=== PATIENT | male | born 1980 | race Caucasian/White ===

== ENCOUNTER 2017-05-18 10:05 | Emergency (ER) | payer MEDICAID ==
[2017-05-18] MEDS ORDERED: LORazepam 1 MG TAB PO ONE (10:49)
--- NOTE | 2017-05-18 10:49 | EDPHY ---
H & P Stated Complaint: m1 SI from [facility] Source: Patient, EMS - Medical/Surgical History Hx Asthma: Yes Hx Chronic Respiratory Disease: No Hx Diabetes: No Hx Cardiac Disease: No Hx Renal Disease: No Hx Cirrhosis: No Hx Alcoholism: Yes Hx HIV/AIDS: No Hx Splenectomy or Spleen Trauma: No Other PMH: asthma, depression, spinal fusion Time Seen by Provider: 05/18/17 10:31 HPI/ROS: CHIEF COMPLAINT: Suicidal ideation, depression HISTORY OF PRESENT ILLNESS: This is a 36-year-old male presenting to the emergency department via EMS. Patient was sent over from [facility] with reports of increased agitation suicidal ideation. Patient here in the ED states" I am just really really depressed, I feel like I am crawling out of my skin never felt this bad before [place] of feel like this. I feel like just jumping into the glass window because Im some crawling out of my skin" patient states he went to [facility] voluntarily because he was so depressed, he reports increased stress with his and environmental stressors. Denies any chest pain shortness of breath REVIEW OF SYSTEMS: Constitutional: No fever, no chills. Eyes: No discharge. ENT: No sore throat. Cardiovascular: No chest pain, no palpitations. Respiratory: No cough, no shortness of breath. Gastrointestinal: No abdominal pain, no vomiting. Genitourinary: No hematuria. Musculoskeletal: No back pain. Skin: No rashes. Neurological: No headache. Psychiatric: Feel depressed (Rivka Romano) - Physical Exam Exam: General Appearance: Alert, agitated, tearful Eyes: Pupils equal and round no pallor or injection. ENT, Mouth: Mucous membranes moist. Respiratory: There are no retractions, lungs are clear to auscultation. Cardiovascular: Regular rate and rhythm. Gastrointestinal: Abdomen is soft and nontender, no masses, bowel sounds normal. Neurological: No focal deficits ambulatory without gait disturbance Skin: Warm and dry, no rashes. Musculoskeletal: Neck is supple nontender. Extremities: symmetrical, full range of motion. Psychiatric: Patient is oriented X 3, agitated (Rivka Romano) Constitutional: Initial Vital Signs Temperature (C) 36.7 C 05/18/17 10:24 Heart Rate 90 05/18/17 10:24 Respiratory Rate 18 05/18/17 10:24 Blood Pressure 135/94 H 05/18/17 10:24 O2 Sat (%) 95 05/18/17 10:24 O2 Delivery Mode Room Air Allergies/Adverse Reactions: No Known Allergies Allergy (Unverified 05/19/17 08:21) Home Medications: Medication Instructions Recorded Mirtazapine [Remeron] 05/19/17 Medical Decision Making ED Course/Re-evaluation: Discussed ED plan of care: CBC, BMP, UA drug screen psych evaluation 1330: The patient re-evaluation, calm no agitation at this moment. Patient medically cleared for psych evaluation 1630: Patient calm, no agitation denies any suicidal ideation homicidal ideation, awaiting EPS evaluation 1710: Patient had up to Dr. Villa, no apparent distress patient stable, awaiting EPS evaluation (Rivka Romano) 1735: Patient has been evaluated by mental health. Patient will be admitted to inpatient psychiatric care. Bed search established at this time. (Marcio Villa) 0700: Assumed patient care at shift change from Dr. Simental. Patient is awaiting placement. Calm and cooperative. 1108: Went to reassess patient and he is currently sleeping. 2pm: pt calm and cooperative. Denies SI/HI. Would like to go back to [facility]. [facility] apparently refused to take pt back. Medicaid declined inpt mental health hospitalization for this pt. EPS contacted again. (Lori Oliva) Patient was not seen by me while he was in the emergency department. However his care was discussed with the nurse practitioner while the patient was in the department. I agree with treatment plan and management (James Haines) Differential Diagnosis: Other differential diagnosis considered but not limited to AMS due to drug abuse , psychosis, and [place] (Rivka Romano) Other Provider: I assumed care of this patient from Dr. Lori Oliva change of shift, 3:00 p.m.. Patient was accepted at [facility] [place]. Transfer paper work was signed by myself. Patient received Ativan for some ongoing, mild agitation, prior to transfer. (Bijal Brown) - Data Points Laboratory Results: Laboratory Results 05/18/17 10:14 05/18/17 10:14 Medications Given: Discontinued Medications Lorazepam (Ativan) 1 mg PO EDNOW ONE Stop: 05/18/17 10:50 Last Admin: 05/18/17 10:57 Dose: 1 mg Lorazepam (Ativan) 1 mg PO EDNOW ONE Stop: 05/19/17 09:24 Last Admin: 05/19/17 09:25 Dose: 1 mg Lorazepam (Ativan) 1 mg PO EDNOW ONE Stop: 05/19/17 17:51 Last Admin: 05/19/17 18:02 Dose: 1 mg Departure - Departure Disposition: Other Psych, Not [place] Clinical Impression: Suicidal ideation, Severe major depression Condition: Good Instructions: Depression (ED), Suicide Prevention for Adults (ED) Referrals: Patient,NotPresent [Unknown] - As per Instructions
[2017-05-18 10:58] LABS: % IMMATURE GRANULYOCYTES 0.7 % (0.0-1.1); ABSOLUTE IMMATURE GRANULOCYTES 0.04 10^3/uL (0.00-0.10); ADD DIFF? NO; ADD MORPH? NO; ADD SCAN? NO; ATYPICAL LYMPHOCYTE FLAG 10 (0-99); FRAGMENT RBC FLAG 10 (0-99); HEMOGLOBIN 15.9 g/dL (13.7-17.5); LEFT SHIFT FLG 0 (0-99); LIPEMIA HEMOLYSIS FLAG 90 (0-99); MEAN CELL HEMOGLOBIN 28.5 pg (27.9-34.1); MEAN CELL HEMOGLOBIN CONCENTR. 33.8 g/dL (32.4-36.7); MEAN CELL VOLUME 84.4 fL (81.5-99.8); PLATELET CLUMPS FLAG 0 (0-99); PLATELET COUNT 460 10^3/uL (150-400); RED BLOOD CELL COUNT 5.57 10^6/uL (4.40-6.38); RED CELL DISTRIBUTION WIDTH 12.8 % (11.5-15.2)
[2017-05-18 11:08] LABS: ANION GAP 10 mEq/L (8-16); CALCIUM 10.3 mg/dL (8.5-10.4); CARBON DIOXIDE 26 mEq/l (22-31); CHLORIDE 106 mEq/L (97-110); CREATININE 1.1 mg/dL (0.7-1.3); ETHANOL SERUM < 10 mg/dL (0-10); GLOMERULAR FILTRATION RATE > 60; GLUCOSE 116 mg/dL (70-100); POTASSIUM 4.4 mEq/L (3.5-5.2); SODIUM 142 mEq/L (134-144)
[2017-05-19] MEDS ORDERED: LORazepam 1 MG TAB PO ONE ×2 (09:23→17:50)
[2017-05-19 18:36] VITALS: PULSE 92; RESP 16; TEMP 97.5
[2017-05-19 19:26] VITALS: BP 111/82; O2SAT 98
== END 2017-05-19 19:27 ==
DX: R45.851 Suicidal ideations (principal); F32.2 Major depressive disorder, single episode, severe without psychotic features; J45.909 Unspecified asthma, uncomplicated
CPT/HCPCS: 80305; G0480

== ENCOUNTER 2017-06-02 13:06 | Emergency (ER) | payer MEDICAID ==
--- NOTE | 2017-06-02 14:20 | EDPHY ---
HPI/HX/ROS/PE/MDM Narrative: CHIEF COMPLAINT: Left sided chest/flank pain, difficulty breathing. HISTORY OF PRESENT ILLNESS: This patient is a 36 year old male with history of asthma complaining of shortness of breath and left-sided pain in his chest, abdomen, and flank onset three days ago. He states he developed abdominal discomfort and shortness of breath, feeling as though something was pressing up from his abdomen on the left side, more pronounced while supine. He states the sensation is different from asthma or neuropathy, and he has not had similar symptoms in the past. Yesterday, he developed associated left-sided chest pain. Today, his discomfort has become noticeably worse, with more pronounced chest, flank, and abdominal pain. He notes increased pain with inspiration and while supine. No fever, chills, constipation, palpitations, vomiting, diarrhea, urinary complaints, headache, lightheadedness. Denies history of recent illness, history of kidney stones, hypertension, hyperlipidemia, or diabetes. No family history of early cardiac disease. Denies constipation. REVIEW OF SYSTEMS: Aside from elements discussed in the HPI, a comprehensive 10-point review of systems was reviewed and is negative. 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 Denies alcohol use, marijuana use, or illicit drug use. VITAL SIGNS: Reviewed by me GENERAL: Well-developed, well-nourished, resting comfortably in no respiratory distress. HEENT: Atraumatic. Eyes: No icterus, no injection. Mouth: moist mucous membranes. No erythema or lesions. Neck: supple with no adenopathy. LUNGS: Somewhat diminished, no wheezes, rhonchi or rales. CARDIAC: Regular rate and rhythm, no rubs, murmurs or gallops. ABDOMEN: Soft, mild left mid quadrant tenderness, no guarding or rebound, nondistended, bowel sounds normal. BACK: Left flank pain. EXTREMITIES: No trauma. No edema. Range of motion is normal throughout. NEURO: Alert and oriented, grossly nonfocal. SKIN: Warm and dry, no rash. PSYCHIATRIC: Normal mentation, no agitation. Portions of this note were transcribed by a medical assistant secretary. I personally performed a history, physical exam, medical decision making, and confirmed accuracy of information the transcribed note. (Bijal Brown) ED Course: Plan for labs including CBC, BMP, UA, lipase, troponin, d-dimer. Plan for chest x-ray, EKG. The 12 lead EKG was interpreted by myself. See hard copy and/or "tracemaster" electronic copy for interpretation. Sinus rhythm, rate 84. Chest x-ray demonstrates no pneumonia. Somewhat elevated left hemidiaphragm. Patient's labs including a troponin are negative. He has no signs of ischemia on EKG, negative troponin, negative D-dimer, no pneumonia on chest x-ray, and normal labs. Urinalysis has no blood. Patient was reexamined at 3:40 p.m.. He has left lateral discomfort to palpation on his abdomen. We discussed the results thus far. Patient wonders if this is a neurologic be pain related to his anterior approach spinal fusion. Plan at this point is to obtain a CT scan. CT scan shows no acute intra- abdominal pathology, patient will be discharged home with symptomatic care. He did receive an albuterol neb treatment to address his complaints of shortness of breath. (Bijal Brown) MDM: After obtaining the patient's history and performing an examination, differential diagnosis considered included but was not limited to appendicitis, cholecystitis, gastritis, pancreatitis, kidney stones, urinary tract infections and other causes. (Bijal Brown) This patient was signed out to me at change of shift. The CT is unremarkable for any acute changes according to Farhad Ramachandran. I will discharge the patient at this time. (Claudio Chou) - Data Points Imaging Results: Imaging Impressions Chest X-Ray 06/02/17 13:14 Impression: No source for chest pain identified. Laboratory Results: Laboratory Results 06/02/17 14:46 06/02/17 14:46 06/02/17 06/02/17 06/02/17 14:46 14:46 14:46 WBC RBC Hgb Hct MCV MCH MCHC RDW Plt Count MPV Neut % (Auto) Lymph % (Auto) [place] % (Auto) Eos % (Auto) Baso % (Auto) Nucleat RBC Rel Count Absolute Neuts (auto) Absolute Lymphs (auto) Absolute Monos (auto) Absolute Eos (auto) Absolute Basos (auto) Absolute Nucleated RBC Immature Gran % Immature Gran # D-Dimer Sodium Potassium Chloride Carbon Dioxide Anion Gap BUN Creatinine Estimated GFR Glucose Calcium Troponin I < 0.012 ng/mL ng/mL (0-0.034) Lipase Urine Color YELLOW Urine Appearance CLEAR Urine pH 7.0 (5.0-7.5) Ur Specific [place] 1.017 (1.002-1.030) Urine Protein NEGATIVE (NEGATIVE) Urine Ketones NEGATIVE (NEGATIVE) Urine Blood NEGATIVE (NEGATIVE) Urine Nitrate NEGATIVE (NEGATIVE) Urine Bilirubin NEGATIVE (NEGATIVE) Urine Urobilinogen NEGATIVE EU EU (0.2-1.0) Ur Leukocyte Esterase NEGATIVE (NEGATIVE) Urine Glucose NEGATIVE (NEGATIVE) [place] 0.8 mEq/L mEq/L (0.6-1.2) 06/02/17 06/02/17 06/02/17 14:46 14:46 14:46 WBC 6.70 10^3/uL 10^3/uL (3.80-9.50) RBC 5.11 10^6/uL 10^6/uL (4.40-6.38) Hgb 14.6 g/dL g/dL (13.7-17.5) Hct 43.4 % % (40.0-51.0) MCV 84.9 fL fL (81.5-99.8) MCH 28.6 pg pg (27.9-34.1) MCHC 33.6 g/dL g/dL (32.4-36.7) RDW 13.1 % % (11.5-15.2) Plt Count 264 10^3/uL 10^3/uL (150-400) MPV 9.8 fL fL (8.7-11.7) Neut % (Auto) 62.0 % % (39.3-74.2) Lymph % (Auto) 24.8 % % (15.0-45.0) [place] % (Auto) 8.8 % % (4.5-13.0) Eos % (Auto) 2.8 % % (0.6-7.6) Baso % (Auto) 0.7 % % (0.3-1.7) Nucleat RBC Rel Count 0.0 % % (0.0-0.2) Absolute Neuts (auto) 4.15 10^3/uL 10^3/uL (1.70-6.50) Absolute Lymphs (auto) 1.66 10^3/uL 10^3/uL (1.00-3.00) Absolute Monos (auto) 0.59 10^3/uL 10^3/uL (0.30-0.80) Absolute Eos (auto) 0.19 10^3/uL 10^3/uL (0.03-0.40) Absolute Basos (auto) 0.05 10^3/uL 10^3/uL (0.02-0.10) Absolute Nucleated RBC 0.00 10^3/uL 10^3/uL (0-0.01) Immature Gran % 0.9 % % (0.0-1.1) Immature Gran # 0.06 10^3/uL 10^3/uL (0.00-0.10) D-Dimer < 0.27 ug/mLFEU ug/mLFEU (0.00-0.50) Sodium 144 mEq/L mEq/L (134-144) Potassium 4.1 mEq/L mEq/L (3.5-5.2) Chloride 105 mEq/L mEq/L (97-110) Carbon Dioxide 28 mEq/l mEq/l (22-31) Anion Gap 11 mEq/L mEq/L (8-16) BUN 13 mg/dL mg/dL (7-23) Creatinine 1.1 mg/dL mg/dL (0.7-1.3) Estimated GFR > 60 Glucose 88 mg/dL mg/dL (70-100) Calcium 9.5 mg/dL mg/dL (8.5-10.4) Troponin I Lipase 162.0 IU/L IU/L (23-300) Urine Color Urine Appearance Urine pH Ur Specific [place] Urine Protein Urine Ketones Urine Blood Urine Nitrate Urine Bilirubin Urine Urobilinogen Ur Leukocyte Esterase Urine Glucose [place] Medications Given: Discontinued Medications Albuterol (Proventil Neb) 3 ml IH EDNOW ONE Stop: 06/02/17 15:43 Last Admin: 06/02/17 16:01 Dose: 3 ml General Time Seen by Provider: 06/02/17 14:18 Initial Vital Signs: Initial Vital Signs Temperature (C) 37.2 C 06/02/17 13:08 Heart Rate 98 06/02/17 13:08 Respiratory Rate 16 06/02/17 13:08 Blood Pressure 125/81 H 06/02/17 13:08 O2 Sat (%) 98 06/02/17 13:08 O2 Delivery Mode Room Air Allergies/Adverse Reactions: No Known Allergies Allergy (Verified 06/02/17 13:08) Home Medications: Medication Instructions Recorded ARIPiprazole [Abilify 5 mg (*)] 7.5 mg PO DAILY 06/02/17 Albuterol Hfa Anes Only [Proair 1 mdi IH 06/02/17 Hfa Icu (*)] Benztropine Mesylate [Cogentin (*)] 1 mg PO 06/02/17 Gabapentin [Neurontin 300 MG (*)] 300 mg PO 06/02/17 [place] Carbonate [[place] 900 mg PO 06/02/17 Carbonate Tab 300 mg (*)] Propylhexedrine [Benzedrex] 1 each NS 06/02/17 hydrOXYzine HCL [hydrOXYzine HCL 25 mg PO 06/02/17 (RX)] traZODone [traZODONE 100MG (*)] 100 mg PO 06/02/17 Departure - Departure Disposition: Home, Routine, Self-Care Clinical Impression: Abdominal pain Qualifiers: Abdominal location: left upper quadrant Qualified Code(s): R10.12 - Left upper quadrant pain Condition: Good Instructions: Abdominal Pain (ED) Referrals: NONE *PRIMARY CARE P,. [Primary Care Provider] - As per Instructions Report Scribed for: Bijal Brown Report Scribed by: Margret Mathews Date of Report: 06/02/17 Time of Report: 14:20
--- NOTE | 2017-06-02 14:35 | CPEKG ---
Heart Rate: 84 RR Interval: 714 P-R Interval: 136 QRSD Interval: 92 QT Interval: 372 QTC Interval: 440 P [place]: 48 QRS [place]: 22 T Wave [place]: 13 EKG Severity - BORDERLINE ECG - EKG Impression: SINUS RHYTHM EKG Impression: BORDERLINE INFERIOR Q WAVES Electronically Signed By: Claudio Chou 05-Jun-2017 14:57:55
[2017-06-02 14:56] LABS: % IMMATURE GRANULYOCYTES 0.9 % (0.0-1.1); ABSOLUTE IMMATURE GRANULOCYTES 0.06 10^3/uL (0.00-0.10); ADD DIFF? NO; ADD MORPH? NO; ADD SCAN? NO; ATYPICAL LYMPHOCYTE FLAG 20 (0-99); FRAGMENT RBC FLAG 0 (0-99); HEMATOCRIT 43.4 % (40.0-51.0); HEMOGLOBIN 14.6 g/dL (13.7-17.5); LEFT SHIFT FLG 10 (0-99); LIPEMIA HEMOLYSIS FLAG 80 (0-99); MEAN CELL HEMOGLOBIN 28.6 pg (27.9-34.1); MEAN CELL HEMOGLOBIN CONCENTR. 33.6 g/dL (32.4-36.7); MEAN CELL VOLUME 84.9 fL (81.5-99.8); MEAN PLATELET VOLUME 9.8 fL (8.7-11.7); PLATELET CLUMPS FLAG 0 (0-99); PLATELET COUNT 264 10^3/uL (150-400); RED BLOOD CELL COUNT 5.11 10^6/uL (4.40-6.38); RED CELL DISTRIBUTION WIDTH 13.1 % (11.5-15.2)
[2017-06-02 15:02] LABS: COLOR YELLOW; LEUKOCYTE ESTERASE,URINE NEGATIVE (NEGATIVE); NITRITE,URINE NEGATIVE (NEGATIVE)
[2017-06-02 15:10] LABS: ANION GAP 11 mEq/L (8-16); CALCIUM 9.5 mg/dL (8.5-10.4); CARBON DIOXIDE 28 mEq/l (22-31); CHLORIDE 105 mEq/L (97-110); CREATININE 1.1 mg/dL (0.7-1.3); GLOMERULAR FILTRATION RATE > 60; GLUCOSE 88 mg/dL (70-100); POTASSIUM 4.1 mEq/L (3.5-5.2); SODIUM 144 mEq/L (134-144)
[2017-06-02] MEDS ORDERED: ALBUTEROL 3 ML DEYVIAL IH ONE (15:42)
[2017-06-02 16:07] LABS: LITHIUM 0.8 mEq/L (0.6-1.2)
[2017-06-02] MEDS ORDERED: IOPAMIDOL (ISOVUE-300) 100 ML BTL ONE (16:31)
[2017-06-02 17:21] VITALS: BP 121/78; PULSE 88; RESP 15; TEMP 98.8; O2SAT 94
== END 2017-06-02 17:21 | disposition home or self-care (01) ==
DX: R10.12 Left upper quadrant pain (principal); J45.909 Unspecified asthma, uncomplicated
CPT/HCPCS: Q9967